=== PATIENT | male | born 1990 | race Asian ===

== ENCOUNTER 2016-11-01 23:22 | Emergency (ER) | payer OTHER ==
[~2016-11-01] VITALS: Ht 180.3 cm; Wt 194.0 kg
[2016-11-02] MEDS ORDERED: PERCOCET 7.51 TABLET PO (00:23)
[2016-11-02] MEDS ORDERED: MOTRIN800 MG PO (00:23)
[2016-11-02 01:20] VITALS: BP 122/80
== END 2016-11-02 01:20 | disposition home or self-care (01) ==
LOC: EXP 23:22 → EME 23:22 → EXP 11-02 01:20
PROC: 0RSJXZZ Reposition Right Shoulder Joint, External Approach (ICD-10-PCS; principal; 2016-11-02)
DX: S43.004A Unspecified dislocation of right shoulder joint, initial encounter (principal); W19.XXXA Unspecified fall, initial encounter; Y93.23 Activity, snow (alpine) (downhill) skiing, snowboarding, sledding, tobogganing and snow tubing
CPT/HCPCS: 73030; 99281; 99285; J3010